=== PATIENT | male | born 1965 | race Two or more races ===

== ENCOUNTER → 2019-03-24 | Outpatient (REF) | payer OTHER | LOC: M LAB REF 15:39 | PROVIDERS: ATTEND Surgery | DX: L72.11 Pilar cyst (principal) ==

== ENCOUNTER 2021-11-05 09:36 | Emergency (ER) | payer OTHER ==
[~2021-11-05] VITALS: Ht 177.8 cm; Wt 112.4 kg
[2021-11-05 09:37] VITALS: BP 160/80
== END 2021-11-05 15:17 | disposition left against medical advice (07) ==
LOC: M ED 09:36
DX: Z53.21 Procedure and treatment not carried out due to patient leaving prior to being seen by health care provider (principal)

== ENCOUNTER → 2021-11-18 | Outpatient (CLI) | payer OTHER | LOC: M SOG 15:27 | PROVIDERS: ATTEND Orthopaedic Surgery Hand Surgery | DX: M25.572 Pain in left ankle and joints of left foot (principal) ==

== ENCOUNTER → 2021-12-04 | Outpatient (CLI) | payer OTHER | LOC: M RAD 06:19 | PROVIDERS: ATTEND Orthopaedic Surgery Hand Surgery | DX: M25.572 Pain in left ankle and joints of left foot (principal); M19.072 Primary osteoarthritis, left ankle and foot ==